=== PATIENT | female | born 1990 | race Hispanic/Latino ===

== ENCOUNTER 2024-07-01 01:53 | Emergency (ER) | payer SELFPAY ==
[2024-07-01] MEDS ORDERED: DIAZEPAM 5 MG TABLET ONE (02:27)
[2024-07-01] MEDS ORDERED: NA CHLORIDE 0.9% 500 ML ONE (02:27)
[2024-07-01 02:34] LABS: PT Prothrombin Time 11.9 SECONDS (9.4-12.5); Protime INR 1.06
[2024-07-01 02:37] LABS: Absolute Basophils 0.1 K/uL (0-0.5); Absolute Eosinophils 0.2 K/uL (0-0.5); Absolute Lymphocytes (CBC) 2.4 K/uL (0.7-4.9); Absolute Monocytes 0.8 K/uL (0.1-1.3); Absolute Neutrophil 7.6 K/uL (1.8-8.0); Basophils % 0.7 % (0-1.3); Eosinophils % 2.2 % (0-4.4); Hematocrit 33.5 % (36.0-45.0); Hemoglobin 11.3 g/dL (12.0-15.0); Lymphocytes % 21.7 % (15.3-44.8); MCH 29.4 pg (27.0-35.0); MCHC 33.8 g/dL (32.0-36.0); MCV 86.9 fL (80-100); Monocytes % 7.3 % (3.3-12.3); Neutrophils % 68.1 % (41.7-73.7); Nucleated Red Blood Cells % 0.1 % (0-0); Platelets 299 thou/uL (152-406); RBC Red Blood Cell Count 3.86 M/uL (3.86-4.86)
[2024-07-01 02:56] LABS: ALT/SGPT 23 U/L (13-56); AST/SGOT 16 U/L (15-37); Albumin 3.8 g/dL (3.4-5.0); Albumin/Globulin Ratio 0.9 (1.1-1.8); Alkaline Phosphatase 95 U/L (45-117); Anion Gap 10.3 mEq/L (5.0-15.0); BUN Blood Urea Nitrogen 11 mg/dL (7-18); Bicarbonate 24 mEq/L (21-32); Bilirubin Total 0.2 mg/dL (0.2-1.0); Globulin 4.3 g/dL (2.3-3.5); Glomerular Filtration Rate 121 ml/min (=/>90); Glucose Level 120 mg/dL (74-106); NT PRO-BNP 21 pg/mL (<125); Potassium 3.3 mEq/L (3.5-5.1); Protein, Total 8.1 g/dL (6.4-8.2); Sodium Level 139 mEq/L (136-145); Troponin High Sensitivity 3.4 pg/mL (<58.9)
[2024-07-01 02:59] LABS: Bilirubin Direct < 0.2 mg/dL (0-0.2)
--- NOTE | 2024-07-01 04:34 | RAD REPORT ---
CLINICAL HISTORY: Chest pain. COMPARISON: None. TECHNIQUE: XR CHEST 2 VIEWS 07/01/2024 2:13 AM CDT FINDINGS: Cardiac silhouette is normal in size. Lungs are clear without consolidation, atelectasis, mass or romel ma. There is no pleural effusion. There is no pneumothorax. There are no acute osseous findings. IMPRESSION: Clear lungs. Electronically signed by: Lan Chambers MD 07/01/2024 03:30 AM CDT RP Due to temporary technical issues with the [employer] reporting system, reports are being elias d by the in-house radiologist without review as a courtesy to ensure prompt reporting the interpreting radiologist is fully responsible for the content of the report. Transcribed Date/Time: 07/01/2024 4:34 AM
--- NOTE | 2024-07-01 05:01 | ER ---
Nurse's Notes [facility] Name: Sara Adame Cua Age: 34 yrs Sex: Female : 1990 Arrival Date: 07/01/2024 Time: 01:53 Bed 6 Private MD: Diagnosis: Anxiety disorder, unspecified;Acute anxiety attack Presentation: 07/01 02:08 Chief complaint: Patient states: anxiety with SOB X1 hr. Coronavirus screen: Client lg3 denies travel out of the [place] in the last 14 days. At this time, the client does not indicate any symptoms associated with coronavirus-19. Ebola Screen: No symptoms or risks identified at this time. Initial Sepsis Screen: Does the patient meet any 2 criteria? No. Patient's initial sepsis screen is negative. Does the patient have a suspected source of infection? No. Patient's initial sepsis screen is negative. Risk Assessment: Do you want to hurt yourself or someone else? Patient reports no desire to harm self or others. Onset of symptoms was July 01, 2024. 02:08 Method Of Arrival: Ambulatory lg3 02:08 Acuity: ISHMAEL 4 lg3 Triage Assessment: 02:09 General: Appears in no apparent distress. comfortable, Behavior is calm, cooperative, lg3 anxious. Pain: Denies pain. EENT: No deficits noted. No signs and/or symptoms were reported regarding the EENT system. Neuro: No deficits noted. Snell Agitation-Sedation Scale (RASS): 0 - Alert and Calm Level of Consciousness is awake, alert, obeys commands, Oriented to person, place, time, situation. Cardiovascular: No deficits noted. Denies chest pain, Capillary refill < 3 seconds Clubbing of nail beds is absent JVD is absent Patient's skin is warm and dry. Respiratory: No deficits noted. Reports shortness of breath Airway is patent Respiratory effort is even, unlabored, Respiratory pattern is regular, symmetrical, Onset: The symptoms/episode began/occurred just prior to arrival, the patient has mild shortness of breath. GI: No deficits noted. No signs and/or symptoms were reported involving the gastrointestinal system. : No deficits noted. No signs and/or symptoms were reported regarding the genitourinary system. Derm: No deficits noted. No signs and/or symptoms reported regarding the dermatologic system. Skin is intact, is healthy with good turgor, Skin is dry, Skin is normal, Skin temperature is warm. Musculoskeletal: No deficits noted. No signs and/or symptoms reported regarding the musculoskeletal system. Circulation, motion, and sensation intact. Range of motion: intact in all extremities. 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 - Infectious Disease History:: Denies. - Social history:: Smoking status: Patient denies any tobacco usage or history of. Patient/guardian denies using alcohol, street drugs. - Family history:: not pertinent. Screenin:41 [facility] ED Fall Risk Assessment (Adult) History of falling in the last 3 months, bm8 including since admission No falls in past 3 months (0 pts) Confusion or Disorientation No (0 pts) Intoxicated or Sedated No (0 pts) Impaired Gait No (0 pts) Mobility Assist Device Used No (0 pt) Altered Elimination No (0 pt) Score/Fall Risk Level 0 - 2 = Low Risk Oriented to surroundings, Maintained a safe environment, Educated pt \T\ family on fall prevention, incl call for assistance when getting out of bed, Assessed \T\ reinforced patient's understanding of fall precautions, Hourly rounding (assess needs \T\ fall precautionary measures) done, Used ambulatory aids as needed (educated on \T\ assisted with), Used gait belt as appropriate. Abuse screen: Denies threats or abuse. Nutritional screening: No deficits noted. Tuberculosis screening: No symptoms or risk factors identified. Assessment: 02:38 Reassessment: Patient appears in no apparent distress at this time. Patient and/or bm8 family updated on plan of care and expected duration. Pain level reassessed. Patient is alert, oriented x 3, equal unlabored respirations, skin warm/dry/pink. General: Appears in no apparent distress. comfortable, Behavior is calm, cooperative, appropriate for age. Pain: Denies pain. Neuro: No deficits noted. Level of Consciousness is awake, alert, obeys commands, Oriented to person, place, time, situation, Appropriate for age. Cardiovascular: Reports shortness of breath, Denies chest pain, Heart tones S1 S2 present Capillary refill < 3 seconds in bilateral fingers toes Patient's skin is warm and dry. Rhythm is sinus rhythm. Respiratory: No deficits noted. Airway is patent Trachea midline Respiratory effort is even, unlabored, Respiratory pattern is regular, symmetrical, Breath sounds are clear bilaterally. GI: No deficits noted. No signs and/or symptoms were reported involving the gastrointestinal system. : No deficits noted. No signs and/or symptoms were reported regarding the genitourinary system. EENT: No deficits noted. No signs and/or symptoms were reported regarding the EENT system. Derm: No deficits noted. No signs and/or symptoms reported regarding the dermatologic system. Musculoskeletal: No deficits noted. No signs and/or symptoms reported regarding the musculoskeletal system. 03:38 Reassessment: Patient appears in no apparent distress at this time. Patient and/or bm8 family updated on plan of care and expected duration. Pain level reassessed. Patient is alert, oriented x 3, equal unlabored respirations, skin warm/dry/pink. Patient denies pain at this time. Patient states feeling better. Patient states symptoms have improved. 05:01 Reassessment: Patient appears in no apparent distress at this time. Patient and/or bm8 family updated on plan of care and expected duration. Pain level reassessed. Patient is alert, oriented x 3, equal unlabored respirations, skin warm/dry/pink. Patient denies pain at this time. Patient states feeling better. Patient states symptoms have improved. Vital Signs: 02:08 BP 125 / 86; Pulse 96; Resp 17 S; Temp 98.1(O); Pulse Ox 99% on R/A; Weight 58.97 kg lg3 (R); Height 5 ft. 1 in. (R); 02:38 BP 111 / 77; Pulse 80; Resp 15; Temp 98.2; Pulse Ox 100% ; Pain 0/10; bm8 03:38 BP 114 / 74; Pulse 72; Resp 15; Temp 98.2; Pulse Ox 99% ; Pain 0/10; bm8 05:01 BP 115 / 74; Pulse 78; Resp 17; Temp 98.2; Pulse Ox 100% ; Pain 0/10; bm8 02:08 Body Mass Index 24.56 (58.97 kg, 154.94 cm) lg3 02:38 Pain Scale: Adult bm8 03:38 Pain Scale: Adult bm8 05:01 Pain Scale: Adult bm8 [place] Coma Score: 02:38 Eye Response: spontaneous(4). Motor Response: obeys commands(6). Verbal Response: bm8 oriented(5). Total: 15. 02:58 Eye Response: spontaneous(4). Motor Response: obeys commands(6). Verbal Response: sp4 oriented(5). Total: 15. 03:38 Eye Response: spontaneous(4). Motor Response: obeys commands(6). Verbal Response: bm8 oriented(5). Total: 15. 05:01 Eye Response: spontaneous(4). Motor Response: obeys commands(6). Verbal Response: bm8 oriented(5). Total: 15. ED Course: 01:55 Patient arrived in ED. [email or web address] 02:07 Magen Rodriguez MD is Attending Physician. sp4 02:09 Triage completed. lg3 02:09 Arm band placed on right wrist. lg3 02:12 Italo Lowry, RN is Primary Nurse. bm8 02:41 Patient has correct armband on for positive identification. Bed in low position. Call bm8 light in reach. Side rails up X 1. Adult w/ patient. Client placed on continuous cardiac and pulse oximetry monitoring. NIBP monitoring applied. residential monitor on. Pulse ox on. NIBP on. Door closed. Noise minimized. Visitors limited. Warm blanket given. Pillow given. Verbal reassurance given. Head of bed elevated. 02:41 No provider procedures requiring assistance completed. Initial lab(s) drawn, by ilsa feliz sent to lab. EKG done, by ED staff, reviewed by Magen Rodriguez MD. Inserted saline lock: 20 gauge in right antecubital area, using aseptic technique. Blood collected. Flushed with 10 mL NS. Patient maintains SpO2 saturation greater than 95% on room air. 02:59 Chest Pa And Lat (2 Views) XRAY In Process Unspecified. EDMS 05:00 Nir Ortega DO is Referral Physician. sp4 05:01 Provided Education on: post er care. bm8 05:01 IV discontinued, intact, bleeding controlled, No redness/swelling at site. Pressure bm8 dressing applied. Administered Medications: 02:36 Drug: Diazepam PO 5 mg PO once Route: PO; bm8 03:49 Follow up: Response: No adverse reaction bm8 02:36 Drug: NS 0.9% IV 500 ml IV at bolus once Route: IV; Rate: bolus; Site: right bm8 antecubital; 03:49 Follow up: Response: No adverse reaction; IV Status: Completed infusion; IV Intake: bm8 500ml Medication: 02:41 VIS not applicable for this client. bm8 Intake: 03:49 IV: 500ml; Total: 500ml. bm8 Outcome: 05:01 Discharge ordered by . sp4 05:01 Discharged to home ambulatory, with family, bm8 05:01 Condition: stable 05:01 Discharge instructions given to patient, family, Instructed on discharge instructions, follow up and referral plans. no drinking with medication, no driving heavy equipment, medication usage, safety practices, Demonstrated understanding of instructions, follow-up care, medications, 05:02 Prescriptions given X 1, bm8 05:28 Patient left the ED. bm8 Signatures: Dispatcher [employer] EDMS Tammy Lara RN RN lg3 Oralia Akers [email or web address] Kyung Land RN RN 1 Magen Rodriguez MD MD sp4 Italo Lowry RN RN bm8 Corrections: (The following items were deleted from the chart) 02:03 02:03 Chief complaint: vc1 vc1 02:10 02:09 Allergies: No Known Allergies; lg3 lg3
--- NOTE | 2024-07-01 05:02 | EDPHYS ---
Physician Documentation [facility] Name: Sara Adame Cua Age: 34 yrs Sex: Female : 1990 Arrival Date: 07/01/2024 Time: 01:53 Bed 6 Private MD: ED Physician Magen Rodriguez HPI: 07/01 02:58 This 34 yrs old Female presents to ER via Ambulatory with complaints of sp4 Shortness Of Breath. 03:03 Patient presents with acute onset of anxiety and feeling unwell starting 2 hors [employer]ESS [employer], sp4 associated with dyspnea . 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 - Infectious Disease History:: Denies. - Social history:: Smoking status: Patient denies any tobacco usage or history of. Patient/guardian denies using alcohol, street drugs. - Family history:: not pertinent. ROS: 02:58 Constitutional: Negative for fever, chills, and weight loss, Positive for anxiety and sp4 dyspnea 02:58 All other systems are negative, Exam: 02:58 Constitutional: This is a well developed, well nourished patient who is awake, alert, sp4 and in no acute distress. Head/Face: Normocephalic, atraumatic. Eyes: Pupils equal round and reactive to light, extra-ocular motions intact. Lids and lashes normal. Conjunctiva and sclera are not injected. Cornea within normal limits. Periorbital areas with no swelling, redness, or edema. ENT: Nares patent. No nasal discharge, no septal abnormalities noted. Tympanic membranes are normal and external auditory canals are clear. Oropharynx with no redness, swelling, or masses, exudates, or evidence of obstruction, uvula midline. Mucous membranes moist. Neck: Trachea midline, no thyromegaly or masses palpated, and no cervical lymphadenopathy. Supple, full range of motion without nuchal rigidity, or vertebral point tenderness. Chest/axilla: Normal chest wall appearance and motion. Nontender with no deformity. No lesions are appreciated. Cardiovascular: Regular rate and rhythm with a normal S1 and S2. No gallops, murmurs, or rubs. Normal PMI, no JVD. No pulse deficits. Respiratory: Lungs have equal breath sounds bilaterally, clear to auscultation and percussion. No rales, rhonchi or wheezes noted. No increased work of breathing, no retractions or nasal flaring. Abdomen/GI: Soft, with normal bowel sounds. No distension or tympany. No guarding or rebound. No evidence of tenderness throughout. Back: No spinal tenderness. No costovertebral tenderness. Skin: Warm, dry with normal turgor. Normal color with no rashes, no lesions, and no evidence of cellulitis. MS/ Extremity: Pulses equal, no cyanosis. Neurovascular intact. Full, normal range of motion. Neuro: Awake and alert, GCS 15, oriented to person, place, time, and situation. Cranial nerves II-XII grossly intact. Motor strength 5/5 in all extremities. Sensory grossly intact. Psych: Awake, alert, with orientation to person, place and time. Behavior, mood, and affect are within normal limits 02:59 ECG was reviewed by the Attending Physician. EKG at 0208 sinus tachycardia rate 101 sp4 otherwise normal Vital Signs: 02:08 BP 125 / 86; Pulse 96; Resp 17 S; Temp 98.1(O); Pulse Ox 99% on R/A; Weight 58.97 kg lg3 (R); Height 5 ft. 1 in. (R); 02:38 BP 111 / 77; Pulse 80; Resp 15; Temp 98.2; Pulse Ox 100% ; Pain 0/10; bm8 03:38 BP 114 / 74; Pulse 72; Resp 15; Temp 98.2; Pulse Ox 99% ; Pain 0/10; bm8 05:01 BP 115 / 74; Pulse 78; Resp 17; Temp 98.2; Pulse Ox 100% ; Pain 0/10; bm8 02:08 Body Mass Index 24.56 (58.97 kg, 154.94 cm) lg3 02:38 Pain Scale: Adult bm8 03:38 Pain Scale: Adult bm8 05:01 Pain Scale: Adult bm8 [place] Coma Score: 02:38 Eye Response: spontaneous(4). Motor Response: obeys commands(6). Verbal Response: bm8 oriented(5). Total: 15. 02:58 Eye Response: spontaneous(4). Motor Response: obeys commands(6). Verbal Response: sp4 oriented(5). Total: 15. 03:38 Eye Response: spontaneous(4). Motor Response: obeys commands(6). Verbal Response: bm8 oriented(5). Total: 15. 05:01 Eye Response: spontaneous(4). Motor Response: obeys commands(6). Verbal Response: bm8 oriented(5). Total: 15. MDM: 02:15 Patient medically screened. sp4 04:06 ED course: CLINICAL HISTORY: Chest pain. COMPARISON: None. TECHNIQUE: XR CHEST 2 VIEWS sp4 07/01/2024 2:13 AM CDT FINDINGS: Cardiac silhouette is normal in size. Lungs are clear without consolidation, atelectasis, mass or edema. There is no pleural effusion. There is no pneumothorax. There are no acute osseous findings. IMPRESSION: Clear lungs. . 05:09 Differential diagnosis: Anxiety Reaction asthma, Bronchitis pneumonia, Psychogenic sp4 pulmonary edema. Data reviewed: vital signs, nurses notes, old medical records, lab test result(s), EKG, radiologic studies, plain films. ED course: Signs of anxiety attack. Stable for discharge home with PRN Valium . 07/01 02:07 Order name: Basic Metabolic Panel; Complete Time: 03:03 4 07/01 02:07 Order name: CBC with Diff; Complete Time: 02:41 4 07/01 02:07 Order name: LFT's; Complete Time: 03:03 sp4 07/01 02:07 Order name: Magnesium; Complete Time: 03:03 sp4 07/01 02:07 Order name: NT PRO-BNP; Complete Time: 03:03 sp4 07/01 02:07 Order name: PT-INR; Complete Time: 02:35 sp4 07/01 02:07 Order name: Troponin HS; Complete Time: 03:03 sp4 07/01 02:07 Order name: Test, Serum; Complete Time: 03:03 4 07/01 02:07 Order name: TSH; Complete Time: 03:03 4 07/01 02:14 Order name: T4 Free; Complete Time: 03:03 sp4 07/01 02:13 Order name: Chest Pa And Lat (2 Views) XRAY sp4 07/01 02:07 Order name: Cardiac monitoring; Complete Time: 02:12 sp4 07/01 02:07 Order name: EKG - Nurse/Tech; Complete Time: 02:12 sp4 07/01 02:07 Order name: IV Saline Lock; Complete Time: 02:36 sp4 07/01 02:07 Order name: Labs collected and sent; Complete Time: 02:36 sp4 07/01 02:07 Order name: O2 Per Protocol; Complete Time: 02:36 sp4 07/01 02:07 Order name: O2 Sat Monitoring; Complete Time: 02:36 sp4 EC:59 Rate is 101 beats/min. Rhythm is regular, Normal Sinus Rhythm. QRS [place] is Normal. [place] sp4 interval is normal. QRS interval is normal. QT interval is normal. No Q waves. T waves are Normal. No ST changes noted. Clinical impression: No evidence of ischemia. Interpreted by me. Reviewed by me. Administered Medications: 02:36 Drug: Diazepam PO 5 mg PO once Route: PO; bm8 03:49 Follow up: Response: No adverse reaction bm8 02:36 Drug: NS 0.9% IV 500 ml IV at bolus once Route: IV; Rate: bolus; Site: right bm8 antecubital; 03:49 Follow up: Response: No adverse reaction; IV Status: Completed infusion; IV Intake: bm8 500ml Disposition Summary: 07/01/24 05:01 Discharge Ordered Notes: Location: Home sp4 Problem: new sp4 Symptoms: have improved sp4 Condition: Stable sp4 Diagnosis - Anxiety disorder, unspecified sp4 - Acute anxiety attack sp4 Followup: sp4 - With: Nir Ortega DO - When: 7 - 10 days - Reason: Recheck today's complaints Discharge Instructions: - Discharge Summary Sheet sp4 - Managing Anxiety, Adult sp4 Forms: - Patient Portal Instructions sp4 Prescriptions: - Valium 5 mg Oral tablet - take 1 tablet ORAL route once daily As needed PRN anxiety; 12 tablet; Refills: sp4 0, Product Selection Permitted Signatures: Dispatcher [employer] Tammy Hernandez RN RN [email or web address] Magen Rodriguez MD MD sp4 Lowry, Italo, RN RN bm8 Corrections: (The following items were deleted from the chart) 02:08 02:08 BASIC METABOLIC PANEL+C.LAB.BRZ ordered. EDMS EDMS 02:08 02:08 CBC+H.LAB.BRZ ordered. EDMS EDMS 02:08 02:08 HEPATIC FUNCTION+C.LAB.BRZ ordered. EDMS EDMS 02:08 02:08 MAGNESIUM+C.LAB.BRZ ordered. EDMS EDMS 02:08 02:08 PROBNP+C.LAB.BRZ ordered. EDMS EDMS 02:08 02:08 PROTIME (+INR)+COAG.LAB.BRZ ordered. EDMS EDMS 02:08 02:08 Troponin High Sensitivity+C.LAB.BRZ ordered. EDMS EDMS 02:08 02:08 TEST, SERUM+SC.LAB.BRZ ordered. EDMS EDMS 02:08 02:08 THYROID STIMULAT HORMONE+C.LAB.BRZ ordered. EDMS EDMS 02:10 02:09 Allergies: No Known Allergies; lg3 lg3
[2024-07-01 06:00] VITALS: TEMP 98.2
[2024-07-01 06:03] VITALS: BP 115/74; O2SAT 100
--- NOTE | 2024-07-01 16:52 | EKG ---
Test Date: 2024-07-01 Test Time: 02:08:02 Dna Analyst: MALLIKA MEASUREMENT RESULTS: Intervals: Rate: 101 IL: 144 QRSD: 96 QT: 368 QTc: 477 [place]: P: 47 IL: 144 QRS: 58 T: 34 INTERPRETIVE STATEMENTS: Sinus tachycardia Otherwise normal ECG No previous ECG available for comparison Electronically Signed On 07-01-24 16:50:07 CDT by Orestes Laureano
== END 2024-07-01 05:28 | disposition home or self-care (01) ==
LOC: ER 01:53
DX: F41.0 Panic disorder [episodic paroxysmal anxiety] (principal)
CPT/HCPCS: 36415; 71046; 80048; 80076; 83735; 83880; 84439; 84443; 84484; 84703; 85025; 85610; 93005; J7040